=== PATIENT | male | born 1945 | race Caucasian/White ===

== ENCOUNTER 2024-08-30 19:04 | Emergency (ER) | payer OTHER ==
[2024-08-30 19:12] VITALS: RESP 20; BMI 36.1
[2024-08-30] MEDS ORDERED: ACETAMINOPHEN INJECTION 100 ML ONE (20:32)
[2024-08-30] MEDS: ACETAMINOPHEN 1000 MG/100 ML BAG IVPB ONE (20:48)
[2024-08-30 20:52] LABS: BASO % 0.2 % (0-2.0); EOS % 0.1 % (0-4.5); HEMATOCRIT 44.8 % (35.4-49); HEMOGLOBIN 15.2 GM/dL (11.7-16.9); LYMPH % 5.2 % (8-40); MCH 31.8 pg (25.7-33.7); MCHC 33.8 g/dl (32.0-35.9); MEAN CELL VOLUME 94.1 fl (80-96); MEAN PLT VOLUME 7.2 fl (7.5-11.1); MONO % 6.5 % (3.8-10.2); PLATELET COUNT 177 10^3/uL (134-434); RBC 4.76 M/mm3 (4.00-5.60); RDW 13.9 % (11.9-15.9); WHITE BLOOD COUNT 9.2 K/mm3 (4.0-10.0)
[2024-08-30 21:05] LABS: INR 1.03 (0.83-1.09); PROTHROMBIN TIME (PATIENT) 11.6 SEC (9.7-13.0)
[2024-08-30 21:07] LABS: ACTIVATED PTT 28.3 SECONDS (25.2-36.5)
[2024-08-30 21:21] LABS: POTASSIUM 4.2 mmol/L (3.5-5.1)
[2024-08-30 21:23] LABS: ALBUMIN 3.1 g/dl (3.4-5.0); CALCIUM 8.9 mg/dL (8.5-10.1)
[2024-08-30 21:24] LABS: BLOOD UREA NITROGEN 22.2 mg/dL (7-18)
[2024-08-30 21:27] LABS: CREATININE 1.2 mg/dL (0.55-1.3)
[2024-08-30 21:28] LABS: BILIRUBIN,TOTAL 0.5 mg/dL (0.2-1); TOT PROT 6.5 g/dl (6.4-8.2)
[2024-08-30] MEDS ORDERED: ASPIRIN 325 MG TABLET ONE (21:59)
[2024-08-30] MEDS: ASPIRIN 325 MG TABLET PO ONE (22:01)
[2024-08-30] MEDS ORDERED: HEPARIN NA (PORCINE) 5,000 UNITS/ML 1ML VIAL IVPUSH PRN ×2 (22:32)
[2024-08-30] MEDS: CLOPIDOGREL BISULFATE 75 MG TABLET (FP) PO ONE (23:27)
[2024-08-31] MEDS ORDERED: HEPARIN INFUSION - 25,000 UNITS/500 ML INFUS.BAG IVPB ONE (00:18)
[2024-08-31] MEDS: HEPARIN NA (PORCINE) 5,000 UNITS/ML 1ML VIAL IVPUSH PRN (00:20)
[2024-08-31] MEDS: HEPARIN - 25,000 UNIT in SODIUM CHLORIDE 495 ML IV SCH (00:26)
[2024-08-31] MEDS ORDERED: CLOPIDOGREL BISULFATE 300 MG TABLET ONE (00:29)
[2024-08-31] MEDS: CLOPIDOGREL BISULFATE 300 MG TABLET PO ONE (00:30)
[2024-08-31] MEDS ORDERED: HEPARIN NA (PORCINE) 5,000 UNITS/ML 1ML VIAL ONE (00:40)
[2024-08-31 05:53] VITALS: BP 120/68; PULSE 85
[2024-08-31 06:00] VITALS: TEMP 98.9
== END 2024-08-31 06:03 | disposition short-term general hospital (02) ==
LOC: JER 19:04
PROC: 3E033NZ Introduction of Analgesics, Hypnotics, Sedatives into Peripheral Vein, Percutaneous Approach (ICD-10-PCS; principal; 2024-08-30)
PROC: 3E033GC Introduction of Other Therapeutic Substance into Peripheral Vein, Percutaneous Approach (ICD-10-PCS; 2024-08-31)
DX: I21.4 Non-ST elevation (NSTEMI) myocardial infarction (principal); R50.9 Fever, unspecified; R51.9 Headache, unspecified; W01.198A Fall on same level from slipping, tripping and stumbling with subsequent striking against other object, initial encounter
CPT/HCPCS: 0241U-QW; 36415; 70450-TC; 71045-TC-FY; 72125-TC; 80053; 83880; 84484; 85025; 85610; 85651; 85730; 93005; 93010; 99285-25; J0131; J1644